=== PATIENT | female | born 1975 | race Hispanic/Latino ===

== ENCOUNTER 2025-02-16 12:56 | Emergency (ER) | payer OTHER ==
--- NOTE | 2025-02-16 13:06 | ERPHSYRPT ---
- History of Present Illness Time Seen by Provider: 02/16/25 13:06 Source: patient, family Exam Limitations: no limitations Physician History: This is an overweight female patient who arrives by private vehicle accompanied by family member who does not have a primary care provider at this time. She said symptoms of sinus congestion and dry cough for a week. She denies chest pain. She denies shortness of breath. She does not have a fever on arrival to the emergency department. Her room air oxygen saturation level is running between 94 and 96%. She does not appear to be in any distress. Patient has a history of asthma, hypertension, hyperlipidemia and depression. Timing/Duration: week(s) (1) Fever Severity: moderate (At home) Fever Therapy SECONDS GRADER: none Associated Symptoms: cough, No abdominal pain, No chest pain, No headache, No shortness of breath, No sore throat, No stiff neck Allergies/Adverse Reactions: aspirin Allergy (Verified 02/16/25 13:11) tramadol Allergy (Verified 02/16/25 13:11) Home Medications: Amlodipine Besylate [Norvasc] 10 mg PO DAILY 02/16/25 [History] Atorvastatin Calcium [Lipitor 20MG Tablet] 20 mg PO DAILY 02/16/25 [History] Escitalopram Oxalate [Lexapro] 10 mg PO DAILY 02/16/25 [History] Losartan Potassium [Cozaar] 25 mg PO DAILY 02/16/25 [History] Montelukast Sodium 10 mg [Singulair 10 MG] 10 mg PO DAILY 02/16/25 [History] Ubidecarenone/Vit E Acet [Co Q-10 100 mg Softgel] 1 cap PO DAILY 02/16/25 [History] chlordiazePOXIDE HCl [Chlordiazepoxide HCl] 25 mg PO DAILY 02/16/25 [History] Travel Risk - International Travel Have you traveled outside of the country in past 3 weeks: No - Emerging Infectious Disease Are you exhibiting symptoms associated with any current EIDs: No - Vaccine Status Hx Covid Vaccintation/Booster/Date Given: No - Review of Systems Constitutional: Fever (At home but none today) Eyes: No Symptoms Ears, Nose, & Throat: Nose Congestion, Throat Pain (I will) Respiratory: Cough Cardiac: No Symptoms Abdominal/Gastrointestinal: No Symptoms Genitourinary Symptoms: No Symptoms Musculoskeletal: Arthralgias, Myalgias Skin: No Symptoms Neurological: No Symptoms Psychological: No Symptoms Endocrine: No Symptoms Hematologic/Lymphatic: No Symptoms Immunological/Allergic: No Symptoms All Other Systems: Reviewed and Negative - Past Medical History Pertinent Past Medical History: Yes - Nursing Vital Signs Nursing Vital Signs: Initial Vital Signs Temperature 98.9 F 02/16/25 13:12 Pulse Rate 97 H 02/16/25 13:12 Respiratory Rate 20 02/16/25 13:12 Blood Pressure 133/82 02/16/25 13:12 O2 Sat by Pulse Oximetry 94 L 02/16/25 13:12 Pain Scale Pain Intensity 4 - Physical Exam General Appearance: no apparent distress, alert, obese Eye Exam: PERRL/EOMI, eyes nml inspection ENT Exam: normal ENT inspection, hearing grossly normal, nasal congestion Neck Exam: normal inspection, non-tender, supple, full range of motion Respiratory Exam: normal breath sounds, lungs clear, no accessory muscle use, No chest non-tender, No no respiratory distress, No decreased breath sounds, No respiratory distress, No decreased air movement, No accessory muscle use Cardiovascular/Chest Exam: normal heart sounds, regular rate/rhythm, normal peripheral pulses Gastrointestinal/Abdominal Exam: soft, non tender, no distention, no ecchymosis, no organomegaly, no pulsatile mass, normal bowel sounds Pelvic Exam: not done Rectal Exam: not done Extremity Exam: non-tender, normal range of motion, normal inspection Neurologic Exam: alert, oriented x 3, cooperative, twisting department end finder II-XII nml as tested, nml cerebellar function, nml station & gait, sensation nml Skin Exam: normal color, warm, dry Lymphatic: No adenopathy SpO2 Interpretation: normal O2 Delivery: Room Air - Course Nursing assessment & vital signs reviewed: Yes Ordered Tests: Active Orders 24 hr Category Date Time Status CHEST 1 VIEW (PORTABLE) Stat Exams 02/16/25 13:42 Taken Medication Summary Generic Name Dose Route Start Last Admin Trade Name Kuldeepq PRN Reason Stop Dose Admin Benzonatate 200 mg 02/16/25 14:35 Benzonatate 100 Mg Capsule PO 02/16/25 14:36 STAT ONE Ceftriaxone Sodium 1,000 mg 02/16/25 14:34 Ceftriaxone Sodium 1000 Mg Inj Vial IM 02/16/25 14:35 STAT ONE Methylprednisolone Sodium 0 mg 02/16/25 14:33 Succinate 125 mg/ Sterile IM 02/16/25 14:34 Water 2 ml STAT ONE Lab/Rad Data: Laboratory Results 02/16/25 Range/Units 13:50 Group A Strep Antibody NOT DETECTED (NEGATIVE) - Progress Progress: improved, re-examined Progress Note: 02/16/25 14:39 My medical decision making and the assignment of low to moderate complexity of this patient's medical issue today is based on review of the patient's past medical history, review the patient's medication list, review the patient drug allergy list, history present illness and physical findings on examination. The workup in this patient includes viral swabs, group A strep test and chest x- ray. Differential diagnosis includes but is not limited to pneumonia, upper respiratory infection, viral illness I interpreted the preliminary report of the patient's chest x-ray. I see an early infiltrate on the right side. I see no other acute processes Counseled pt/family regarding: lab results, diagnosis, need for follow-up, rad results Medical Desision Making - Independent Historian Additional History obtained from: Family - Diagnostic Testing Diagnostic test were ordered, analyzed, and reviewed by me: Yes Radiological Interpretation: Interpreted by me - Risk of complications The pt has a mod risk of morbidity or mortality based on: Need for prescription drug management - Departure Departure Disposition: Home Clinical Impression: Right pulmonary infiltrate on CXR Condition: Stable Critical Care Time: No Critical Care Time(excluding separately billable procedures): Critical 30-74 mins Referrals: DOCTOR,NO FAMILY [Primary Care Provider, UNKNOWN] - Follow up/PCP as directed Prescriptions: Benzonatate 200 mg PO TID PRN #10 cap PRN Reason: Cough Prednisone 10 mg [Deltasone 10 mg] 10 mg PO TID #12 tablet Albuterol 8 gm Mdi Hfa [Ventolin Hfa MDI] 8 gm IH Q4H #1 unit Azithromycin 250 mg [Zithromax 250 MG TABLET] 250 mg PO ZPACK #6 tablet
[2025-02-16 13:22] VITALS: TEMP 98.9
[2025-02-16 14:35] LABS: INFLUENZA A NEGATIVE (NEGATIVE); INFLUENZA B NEGATIVE (NEGATIVE); RESPIRATORY SYNCTIAL VIRUS NEGATIVE (NEGATIVE); SARS-CoV-2 Xpert Express NEGATIVE (NEGATIVE)
[2025-02-16] MEDS ORDERED: Tessalon Perles 100 MG PO ONE (14:43)
[2025-02-16] MEDS ORDERED: solu-MEDROL ONE (14:43)
[2025-02-16] MEDS ORDERED: Sterile H2O 10 ml IJ ONE (14:43)
[2025-02-16] MEDS ORDERED: XYLOCAINE 1% HCL 20 ML MDV ONE (14:43)
[2025-02-16] MEDS ORDERED: Rocephin 1000 MG INJ ONE (14:43)
[2025-02-16] MEDS: Tessalon Perles 100 MG PO ONE (14:45)
[2025-02-16] MEDS: Rocephin 1000 MG INJ IM ONE (14:47)
[2025-02-16] MEDS: solu-MEDROL 125 MG, Sterile H2O 10 ml 2 ML IM ONE (14:47)
[2025-02-16 15:06] VITALS: BP 109/72; PULSE 80; RESP 18; O2SAT 97
--- NOTE | 2025-02-16 20:35 | XRAY ---
Indication: Fever. Cough. Comparison: None Portable chest demonstrates subtle right infrahilar infiltrate/atelectasis. Remaining heart and lungs unremarkable. Bony thorax intact with minimal degenerative changes.
== END 2025-02-16 15:07 | disposition home or self-care (01) ==
LOC: ED 12:56
DX: R91.8 Other nonspecific abnormal finding of lung field (principal); I10 Essential (primary) hypertension; E78.5 Hyperlipidemia, unspecified; F32.A Depression, unspecified; J45.909 Unspecified asthma, uncomplicated; R05.1 Acute cough; Z79.899 Other long term (current) drug therapy
CPT/HCPCS: 0241U; 71045; 87651; 96372; 99284; 99291; J0696; J2919; A9270-GY